=== PATIENT | male | born 1985 | race Caucasian/White ===

== ENCOUNTER 2025-04-27 13:22 | Emergency (ER) | payer OTHER ==
[2025-04-27 13:30] VITALS: TEMP 97.8
--- NOTE | 2025-04-27 13:38 | ED ---
Abdominal Pain HPI - General Source: patient Mode of arrival: ambulatory Limitations: no limitations <Jonna Hurtado - Last Filed: 04/27/25 15:50> <Terrence Cortes - Last Filed: 04/28/25 07:36> - General Chief Complaint: Abdominal Pain Stated Complaint: Abd pain - History of Present Illness Initial Comments: 39-year-old male here for abdominal pain in the last 24 hours. patient reported that he has been experiencing 6/10 burning abdominal pain in epigastric with associated fatigue. Denied hematochezia, hematemesis, vomiting, diarrhea, constipation, chest pain, palpitations, shortness of breath, focal weakness. (Jonna Hurtado) - Related Data Previous Rx's Medication Instructions Recorded Hydrocortisone Oint 1 applic TOPICAL BID #1 applic 08/25/14 [Hydrocortisone 2.5% Oint] Triamcinolone 0.1% Ointment 1 applic TOPICAL BID #1 applic 08/25/14 [Kenalog 0.1% Ointment] Omeprazole 20 mg PO DAILY #14 cap 04/27/25 Allergies Allergy/AdvReac Type Severity Reaction Status Date / Time No Known Allergies Allergy Verified 04/27/25 13:30 Review of Systems ROS Other: All systems not noted in ROS Statement are negative. <Jonna Hurtado - Last Filed: 04/27/25 15:50> ROS Other: All systems not noted in ROS Statement are negative. <Terrence Crotes - Last Filed: 04/28/25 07:36> ROS Statement: Those systems with pertinent positive or pertinent negative responses have been documented in the HPI. Past Medical History Past Medical History: Skin Disorder Additional Past Medical History / Comment(s): ECZEMA ALL OVER BODY History of Any Multi-Drug Resistant Organisms: None Reported Past Surgical History: No Surgical Hx Reported Past Anesthesia/Blood Transfusion Reactions: Motion Sickness Past Psychological History: No Psychological Hx Reported Past Alcohol Use History: None Reported Past Drug Use History: None Reported - Past Family History Father Family Medical History: Unable to Obtain Mother Family Medical History: Unable to Obtain <Jonna Hurtado - Last Filed: 04/27/25 15:50> General Exam Limitations: no limitations <Jonna Hurtado - Last Filed: 04/27/25 15:50> - General Exam Comments Initial Comments: Physical examination: Vital signs reviewed General: non toxic, no distress, appears at stated age Head: atraumatic, normocephalic, symmetric Mouth: no lip lesion, mucus membranes moist Cardiovascular: S1S2 reg, no murmur Lungs: CTA bilateral, no rhonchi, no rales, no accessory muscle use Abdominal: soft, nondistended, tender to deep palpation epigastric area, no guarding, bowel sounds appreciated Ext: muscle strength 5 out of 5 in all 4 extremities grossly, no gross muscle atrophy, no contractures, positive dorsalis pedis pulse bilateral, no edema Neuro: no gross focal neuro deficits Psych: Alert and oriented x3, appropriate affect and mood (Jonna Hurtado) Course <Jonna Hurtado - Last Filed: 04/27/25 15:50> Vital Signs 04/27/25 04/27/25 13:28 16:03 Temperature 97.8 F Pulse Rate 76 55 L Respiratory 16 18 Rate Blood Pressure 152/98 137/82 O2 Sat by Pulse 100 98 Oximetry - Reevaluation(s) Reevaluation #1: 04/27/25 15:34 Pain improved with Protonix (Jonna Hurtado) Medical Decision Making - Lab Data Result diagrams: 04/27/25 14:20 04/27/25 14:20 <Jonna Hurtado - Last Filed: 04/27/25 15:50> - Lab Data Result diagrams: 04/27/25 14:20 04/27/25 14:20 <Terrence Cortes - Last Filed: 04/28/25 07:36> - Medical Decision Making Was pt. sent in by a medical professional or institution (, PA, CRESTER, urgent care, hospital, or prison...) When possible be specific @ -No Did you speak to anyone other than the patient for history (EMS, parent, family, police, friend...)? What history was obtained from this source @ -No Did you review nursing and triage notes (agree or disagree)? Why? @ -I reviewed and agree with nursing and triage notes Were old charts reviewed (outside hosp., previous admission, EMS record, old EKG, old radiological studies, urgent care reports/EKG's, prison records)? Report findings @ -[No old charts were reviewed] Differential Diagnosis? @ -Differential Abdominal Pain Men: Appendicitis, cholecystitis, diverticulosis, ischemic bowel, pancreatitis, hepatitis, UTI, gastroenteritis, AAA, incarcerated hernia, bowel obstruction, constipation, inflammatory bowel, hepatitis, peptic ulcer disease, splenic infarction, perforated viscus, testicular torsion, this is not meant to be an all-inclusive list EKG interpreted by me (3pts min.). @ -[As above] X-rays interpreted by me (1pt min.). @ -[None done] CT interpreted by me (1pt min.). @ -[None done] U/S interpreted by me (1pt. min.). @ -[None done] What testing was considered but not performed or refused? (CT, X-rays, U/S, labs)? Why? @ -[None] What meds were considered but not given or refused? Why? @ -[None] Did you discuss the management of the patient with other professionals (professionals i.e. , PA, CRESTER, lab, RT, psych nurse, oncology social work, bicycle service technician, teacher, wildlife officer, piano case and bench assembler)? Give summary @ -Dr. Chacon, supervising physician Was smoking cessation discussed for >3mins.? @ -[No] Was critical care preformed (if so, how long)? @ -[No] Were there social determinants of health that impacted care today? How? (Homelessness, low income, unemployed, alcoholism, drug addiction, transportation, low edu. Level, literacy, decrease access to med. care, long term, rehab)? @ -[No] Was there de-escalation of care discussed even if they declined (Discuss DNR or withdrawal of care, Hospice)? DNR status @ -[No] What co-morbidities impacted this encounter? (DM, HTN, Smoking, COPD, CAD, Cancer, CVA, ARF, Chemo, Hep., AIDS, mental health diagnosis, sleep apnea, morbid obesity)? @ -[None] Was patient admitted / discharged? Hospital course, mention meds given and route, prescriptions, significant lab abnormalities, going to OR and other pertinent info. @ -Discharge. Labs were unremarkable. Patient symptoms improved with Protonix IV once. No new symptoms or complaints occurred. He is discharged with 14-day supply of omeprazole p.o. and advised to follow-up with PCP. Undiagnosed new problem with uncertain prognosis? @ -No Drug Therapy requiring intensive monitoring for toxicity (Heparin, Nitro, Insulin, Cardizem)? @ -No Were any procedures done? @ -No Diagnosis/symptom? @ -[default] Acute, or Chronic, or Acute on Chronic? @ -Acute Uncomplicated (without systemic symptoms) or Complicated (systemic symptoms)? @ -Uncomplicated Side effects of treatment? @ -[No] Exacerbation, Progression, or Severe Exacerbation? @ -[No] Poses a threat to life or bodily function? How? (Chest pain, USA, ID, pneumonia, PE, COPD, DKA, ARF, appy, cholecystitis, CVA, Diverticulitis, Homicidal, Suicidal, threat to staff... and all critical care pts) @ -[No] (Jonna Hurtado) I personally saw the patient and performed the critical portion of the service. I discussed the patient care with the resident. I directed management, care planning and final disposition of the patient. This includes, but not limited to, review of all lab work, radiological studies, EKG's, consultations, vital signs, and nursing notes. EKG interpreted by me (3pts min.) @ [Please see EKG and EKG section X-Rays interpreted by me (1 pt min.) @None CT interpreted by me ( 1pt min.) @None U/S interpreted by me (1 pt min.) @None Critical care time of 0 minutes excluding separately billable procedures was spent in conjunction with critical care activities provided by the Resident and Attending simultaneously. I was present during no procedures for all critical portions of the procedure and as immediately available to furnish service during the entire procedure. (Terrence Cortes) - Lab Data Lab Results 04/27/25 04/27/25 04/27/25 Range/Units 14:20 14:20 14:20 WBC 7.23 (4.50-10.00) 10*3/uL RBC 4.99 (4.40-5.60) 10*6/uL Hgb 14.4 (13.0-17.0) g/dL Hct 43.7 (39.6-50.0) % MCV 87.6 (80.0-97.0) fL MCH 28.9 (27.0-32.0) pg MCHC 33.0 (32.0-37.0) g/dL Plt Count 231 (140-440) 10*3/uL MPV 9.9 (9.5-12.2) fL Immature Gran % (Auto) 0.3 % Neutrophils % 71.3 % Lymphocytes % 16.9 % Monocytes % 9.7 % Eosinophils % 1.2 % Basophils % 0.6 % Immature Gran # 0.02 (0.00-0.04) 10*3/uL Neutrophils # 5.16 (1.80-7.70) 10*3/uL Lymphocytes # 1.22 (0.90-5.00) 10*3/uL Monocytes # 0.70 (0.20-1.00) 10*3/uL Eosinophils # 0.09 (0.04-0.35) 10*3/uL Basophils # 0.04 (0.00-0.10) 10*3/uL Sodium 138 (137-145) mmol/L Potassium 3.9 (3.5-5.1) mmol/L Chloride 102 (98-107) mmol/L Carbon Dioxide 26 (22-30) mmol/L Anion Gap 10 mmol/L BUN 12 (9-20) mg/dL Creatinine 0.86 (0.66-1.25) mg/dL Est GFR (CKD-EPI)AfAm >90 (>60 ml/min/1.73 sqM) Est GFR (CKD-EPI)NonAf >90 (>60 ml/min/1.73 sqM) Glucose 106 H (74-99) mg/dL Calcium 9.1 (8.4-10.2) mg/dL Total Bilirubin 0.9 (0.2-1.3) mg/dL AST 19 (17-59) U/L ALT 20 (4-49) U/L Alkaline Phosphatase 60 (38-126) U/L Troponin I <0.012 (0.000-0.034) ng/mL Total Protein 6.9 (6.3-8.2) g/dL Albumin 4.1 (3.5-5.0) g/dL Amylase 42 (30-110) U/L Lipase 48 (23-300) U/L - EKG Data EKG Comments: Sinus rhythm with a rate of 63, FL interval 154 MS, QTc 410 MS, no ST-T changes, noted artifact in inferior leads (Jonna Hurtado) Disposition Is patient prescribed a controlled substance at d/c from ED?: No Time of Disposition: 15:44 <Jonna Hurtado - Last Filed: 04/27/25 15:50> <Terrence Cortes - Last Filed: 04/28/25 07:36> Clinical Impression: GERD (gastroesophageal reflux disease) Disposition: HOME SELF-CARE Additional Instructions: Advised to eat regular meals and to do appropriate hydration. Advised to follow-up with PCP in 1 to 2 days Prescriptions: Omeprazole 20 mg PO DAILY #14 cap Referrals: [facility] [NON-[facility]] - 1-2 days
[2025-04-27] MEDS: PANTOPRAZOLE 40 MG TABLET PO STA (14:24)
[2025-04-27 14:27] LABS: Basophils # (A) 0.04 10*3/uL (0.00-0.10); Basophils % (A) 0.6 %; Eosinophils # (A) 0.09 10*3/uL (0.04-0.35); Eosinophils % (A) 1.2 %; HCT 43.7 % (39.6-50.0); HGB 14.4 g/dL (13.0-17.0); Lymphocytes # (A) 1.22 10*3/uL (0.90-5.00); Lymphocytes % (A) 16.9 %; MCH 28.9 pg (27.0-32.0); MCHC 33.0 g/dL (32.0-37.0); MCV 87.6 fL (80.0-97.0); Monocytes # (A) 0.70 10*3/uL (0.20-1.00); Monocytes % (A) 9.7 %; Neutrophils # (A) 5.16 10*3/uL (1.80-7.70); Neutrophils % (A) 71.3 %; Platelet Count 231 10*3/uL (140-440); RBC 4.99 10*6/uL (4.40-5.60); RDW 13.0 % (11.5-14.5); WBC 7.23 10*3/uL (4.50-10.00)
[2025-04-27 14:58] LABS: ALT 20 U/L (4-49); AST 19 U/L (17-59); African American GFR (CKD) >90 (>60 ml/min/1.73 sqM); Albumin 4.1 g/dL (3.5-5.0); Alkaline Phosphatase 60 U/L (38-126); Amylase 42 U/L (30-110); Anion Gap 10 mmol/L; Blood Urea Nitrogen 12 mg/dL (9-20); Calcium 9.1 mg/dL (8.4-10.2); Carbon Dioxide 26 mmol/L (22-30); Chloride 102 mmol/L (98-107); Glucose 106 mg/dL (74-99); Lipase 48 U/L (23-300); Non-African American GFR(CKD) >90 (>60 ml/min/1.73 sqM); Potassium 3.9 mmol/L (3.5-5.1); Sodium 138 mmol/L (137-145); Total Protein 6.9 g/dL (6.3-8.2)
[2025-04-27 16:05] VITALS: BP 137/82; PULSE 55; RESP 18
== END 2025-04-27 16:03 | disposition home or self-care (01) ==
LOC: EC 13:22
DX: K21.9 Gastro-esophageal reflux disease without esophagitis (principal)
CPT/HCPCS: 36415; 80053; 82150; 83690; 84484; 85025; 93005; 99284